=== PATIENT | female | born 2000 | race African-American/Black ===

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

== ENCOUNTER 2018-01-21 21:12 | Emergency (ER) | payer OTHER ==
[~2018-01-21 21:12] MED LIST changes: +CLARITIN-D 121 EAC1 ORAL; +NKM; +PROMETHAZINE-C118 M1 ORAL; +TAMIFLU75 MG ORAL; +TYLENOL EXTRA500 MG ORAL; +ZOFRAN ODT4 MG ORAL
== END 2018-01-21 21:45 | disposition left against medical advice (07) ==
LOC: EMR 21:45
DX: R68.83 Chills (without fever) (principal); Z53.21 Procedure and treatment not carried out due to patient leaving prior to being seen by health care provider